=== PATIENT | female | born 1980 | race Caucasian/White ===

== ENCOUNTER 2017-08-14 08:22 | Emergency (ER) | payer OTHER ==
[2017-08-14 10:05] LABS: BASOPHIL % 0.3 % (0-2); PLATELET COUNT 380 x10^3mcL (130-400)
[2017-08-14 10:13] LABS: RED CELL DISTRIBUTION WIDTH 17.4 % (11.5-14.5)
[2017-08-14 10:32] LABS: CALCIUM 8.5 mg/dL (8.5-10.1); CARBON DIOXIDE 27.8 mmol/L (21-32); CHLORIDE SERUM 104 mmol/L (98-107); CREATININE SERUM 0.6 mg/dL (0.6-1.0); GFR1 > 60 mL/min; GLUCOSE SERUM 92 mg/dL (74-106); POTASSIUM SERUM 4.3 mmol/L (3.5-5.1); SODIUM SERUM 137 mmol/L (136-145)
[2017-08-14 10:36] LABS: ALBUMIN 3.6 g/dL (3.4-5.0); ALKALINE PHOSPHATASE 68 U/L (46-116); ALT/SGPT 23 U/L (14-59); AST/SGOT 20 U/L (15-37); BILIRUBIN TOTAL 0.2 mg/dL (0.20-1.00); CHOLESTEROL 185 mg/dL (<200); CHOLESTEROL/HDL RATIO 3.7; HDL CHOLESTEROL 50 mg/dL (40-60); LIPASE 161 IU/L (73-393); TOTAL PROTEIN, SERUM 7.2 g/dL (6.4-8.2); TRIGLYCERIDES 104 mg/dL (<150)
[2017-08-14 10:44] LABS: FREE T4 0.77 ng/dL (0.76-1.46); FREE THYROXINE INDEX 2.2 ug/dL (1.4-4.5); T4(THYROXINE) 6.7 ug/dL (4.7-13.3)
[2017-08-14 10:58] LABS: T3 TOTAL 0.96 ng/mL
[2017-08-14 11:51] LABS: microscopic required? YES; urine erythrocyte 2+ (NEGATIVE)
[2017-08-14 12:09] VITALS: BP 110/56
== END 2017-08-14 12:09 | disposition home or self-care (01) ==
LOC: ED 08:22
PROVIDERS: Specialist
DX: M54.6 Pain in thoracic spine (principal); F03.90 Unspecified dementia, unspecified severity, without behavioral disturbance, psychotic disturbance, mood disturbance, and anxiety; R10.9 Unspecified abdominal pain
CPT/HCPCS: 72072; 83880; 84439; J1885; J2405; J3010; J7030

== ENCOUNTER 2017-10-28 02:40 | Emergency (ER) | payer OTHER ==
[~2017-10-28] VITALS: Ht 157.5 cm; Wt 74.5 kg
[2017-10-28 02:48] VITALS: BP 122/76; Ht 157.5 cm; Wt 74.5 kg
== END 2017-10-28 02:57 | disposition left against medical advice (07) ==
LOC: ED 02:40
DX: Z53.21 Procedure and treatment not carried out due to patient leaving prior to being seen by health care provider (principal)

== ENCOUNTER 2017-10-28 21:02 | Emergency (ER) | payer OTHER ==
[~2017-10-28] VITALS: Ht 157.5 cm; Wt 72.6 kg
[2017-10-28 21:15] VITALS: Ht 157.5 cm; Wt 72.6 kg
[2017-10-29 00:48] VITALS: BP 113/74
== END 2017-10-29 00:48 | disposition left against medical advice (07) ==
LOC: ED 21:02
DX: Z53.21 Procedure and treatment not carried out due to patient leaving prior to being seen by health care provider (principal)

== ENCOUNTER 2017-10-29 11:35 | Emergency (ER) | payer OTHER ==
[~2017-10-29] VITALS: Ht 157.5 cm; Wt 71.7 kg
[2017-10-29 11:51] VITALS: Ht 157.5 cm; Wt 71.7 kg
[2017-10-29 15:30] LABS: UA SPECIFIC GRAVITY 1.015 (1.005-1.035); microscopic required? YES; urine erythrocyte 3+ (NEGATIVE)
[2017-10-29 15:48] LABS: BASOPHIL % 0.1 % (0-2); PLATELET COUNT 346 x10^3mcL (130-400)
[2017-10-29 16:04] LABS: CALCIUM 8.5 mg/dL (8.5-10.1); CHLORIDE SERUM 102 mmol/L (98-107); CREATININE SERUM 0.5 mg/dL (0.6-1.0); GFR1 > 60 mL/min; GLUCOSE SERUM 100 mg/dL (74-106); SODIUM SERUM 136 mmol/L (136-145)
[2017-10-29 16:05] LABS: RED CELL DISTRIBUTION WIDTH 17.7 % (11.5-14.5)
[2017-10-29 16:12] LABS: T3 TOTAL 0.8 ng/mL
[2017-10-29 16:16] LABS: ALBUMIN 3.1 g/dL (3.4-5.0); ALKALINE PHOSPHATASE 67 U/L (46-116); ALT/SGPT 18 U/L (14-59); AST/SGOT 15 U/L (15-37); BILIRUBIN TOTAL 0.3 mg/dL (0.20-1.00); C REACTIVE PROTEIN 11.4 mg/dL (<=0.9); TOTAL PROTEIN, SERUM 6.9 g/dL (6.4-8.2)
[2017-10-29 16:17] LABS: CK-MB 0.5 ng/mL (0-3.6)
[2017-10-29 16:24] LABS: FREE THYROXINE INDEX 1.8 ug/dL (1.4-4.5); T4(THYROXINE) 5.4 ug/dL (4.7-13.3)
[2017-10-29 16:38] VITALS: BP 100/66
[2017-10-29 17:44] LABS: ERYTHROCYTE SED RATE 32 mm/hr (0-20)
== END 2017-10-29 16:38 | disposition home or self-care (01) ==
LOC: ED 11:35
PROVIDERS: Specialist
DX: N10 Acute pyelonephritis (principal)
CPT/HCPCS: 83880; 84439; J0696; J1170; J1885; J2405; J7030; Q0092

== ENCOUNTER 2018-06-06 18:33 | Emergency (ER) | payer SELFPAY ==
[~2018-06-06] VITALS: Ht 157.5 cm; Wt 69.9 kg
[2018-06-06 18:43] VITALS: Ht 157.5 cm; Wt 69.9 kg
[2018-06-06 20:21] VITALS: BP 116/69
== END 2018-06-06 20:22 | disposition left against medical advice (07) ==
LOC: ED 18:33
DX: Z53.21 Procedure and treatment not carried out due to patient leaving prior to being seen by health care provider (principal)

== ENCOUNTER 2018-06-08 21:22 | Emergency (ER) | payer SELFPAY ==
[~2018-06-08] VITALS: Ht 157.5 cm; Wt 68.7 kg
[2018-06-08 22:07] VITALS: Ht 157.5 cm; Wt 68.7 kg
[2018-06-09 01:05] VITALS: BP 138/85
== END 2018-06-09 01:05 | disposition left against medical advice (07) ==
LOC: ED 21:22
DX: Z53.21 Procedure and treatment not carried out due to patient leaving prior to being seen by health care provider (principal)

== ENCOUNTER 2018-08-17 19:37 | Inpatient (IN) | payer SELFPAY ==
[~2018-08-17] VITALS: Ht 157.5 cm; Wt 70.1 kg
[2018-08-17 19:42] VITALS: Ht 157.5 cm; Wt 70.1 kg
[2018-08-17 20:07] LABS: PLATELET COUNT 379 x10^3mcL (130-400)
[2018-08-17 20:09] LABS: RED CELL DISTRIBUTION WIDTH 15.5 % (11.5-14.5)
[2018-08-17 20:13] LABS: CALCIUM 8.6 mg/dL (8.5-10.1); CARBON DIOXIDE 23.6 mmol/L (21-32); CHLORIDE SERUM 99 mmol/L (98-107); CREATININE SERUM 0.7 mg/dL (0.6-1.0); GFR1 > 60 mL/min; GLUCOSE SERUM 110 mg/dL (74-106); SODIUM SERUM 133 mmol/L (136-145)
[2018-08-17 20:18] LABS: ALKALINE PHOSPHATASE 84 U/L (46-116); ALT/SGPT 14 U/L (14-59); AST/SGOT 10 U/L (15-37); BILIRUBIN TOTAL 0.6 mg/dL (0.20-1.00); LIPASE 79 IU/L (73-393); TOTAL PROTEIN, SERUM 7.2 g/dL (6.4-8.2)
[2018-08-17 20:19] LABS: ALBUMIN 3.3 g/dL (3.4-5.0)
[2018-08-17 20:46] LABS: BAND NEUTROPHIL 17 % (0-10); BASOPHIL 0 % (0-2); MONOCYTE 3 % (0-7); MYELOCYTE 1 % (0-2); SEGMENTED NEUTROPHILS 76 % (37-75)
[2018-08-17 20:47] LABS: ovalocyte/elliptocyte 1+; rbc morphology (normal/abnorm) ABNORMAL (NORMAL)
[2018-08-17 20:48] LABS: PLATELET MORPHOLOGY PLATELETS NORMAL
[2018-08-17 23:42] VITALS: BP 96/61
[2018-08-18 01:11] LABS: MAGNESIUM 1.8 mg/dL (1.8-2.4); PHOSPHOROUS 3.2 mg/dL (2.5-4.9)
[2018-08-18 01:14] LABS: T3 TOTAL 0.79 ng/mL
[2018-08-18 01:15] LABS: CHOLESTEROL/HDL RATIO 2.2
[2018-08-18 01:20] LABS: FREE T4 1.03 ng/dL (0.76-1.46); FREE THYROXINE INDEX 2.4 ug/dL (1.4-4.5)
[2018-08-18 05:31] VITALS: BP 100/56
[2018-08-18 05:58] LABS: BASOPHIL % 0.1 % (0-2); PLATELET COUNT 352 x10^3mcL (130-400)
[2018-08-18 06:11] LABS: CALCIUM 7.7 mg/dL (8.5-10.1); CARBON DIOXIDE 27.4 mmol/L (21-32); CHLORIDE SERUM 105 mmol/L (98-107); CREATININE SERUM 0.7 mg/dL (0.6-1.0); GFR1 > 60 mL/min; GLUCOSE SERUM 96 mg/dL (74-106); SODIUM SERUM 136 mmol/L (136-145)
[2018-08-18 06:33] LABS: RED CELL DISTRIBUTION WIDTH 15.5 % (11.5-14.5)
[2018-08-18 08:03] VITALS: BP 97/53
[2018-08-18 08:40] LABS: AMPHETAMINE QUAL UR POSITIVE (See below)
[2018-08-18 09:06] LABS: microscopic required? YES; urine erythrocyte NEGATIVE (NEGATIVE)
[2018-08-18 17:04] VITALS: BP 106/69
[2018-08-18 20:37] VITALS: BP 115/61
[2018-08-19 05:33] VITALS: BP 111/63
[2018-08-19 06:21] LABS: CARBON DIOXIDE 26.1 mmol/L (21-32); CHLORIDE SERUM 109 mmol/L (98-107); CREATININE SERUM 0.5 mg/dL (0.6-1.0); GFR1 > 60 mL/min; GLUCOSE SERUM 100 mg/dL (74-106); MAGNESIUM 1.9 mg/dL (1.8-2.4); PHOSPHOROUS 2.4 mg/dL (2.5-4.9); PLATELET COUNT 400 x10^3mcL (130-400); POTASSIUM SERUM 4.1 mmol/L (3.5-5.1); SODIUM SERUM 140 mmol/L (136-145)
[2018-08-19 06:32] LABS: RED CELL DISTRIBUTION WIDTH 15.7 % (11.5-14.5)
[2018-08-19 07:27] LABS: BAND NEUTROPHIL 3 % (0-10); BASOPHIL 0 % (0-2); MONOCYTE 5 % (0-7); SEGMENTED NEUTROPHILS 76 % (37-75); rbc morphology (normal/abnorm) ABNORMAL (NORMAL)
[2018-08-19 07:28] LABS: PLATELET MORPHOLOGY PLATELETS NORMAL; ovalocyte/elliptocyte 1+
[2018-08-19 08:36] VITALS: BP 124/81
[2018-08-19] MEDS ORDERED: DOXYCYCLINE HY100 MG PO (08:37)
[2018-08-19 10:53] VITALS: BP 124/81
== END 2018-08-19 15:00 | disposition home or self-care (01) | DRG 872 ==
LOC: ED 19:37 → MU 22:49
PROVIDERS: Emergency Medicine; General Practice
DX: A41.9 Sepsis, unspecified organism (principal); E87.1 Hypo-osmolality and hyponatremia; F12.90 Cannabis use, unspecified, uncomplicated; D50.9 Iron deficiency anemia, unspecified; R73.03 Prediabetes; F15.90 Other stimulant use, unspecified, uncomplicated; N73.9 Female pelvic inflammatory disease, unspecified; Z98.51 Tubal ligation status; Z72.89 Other problems related to lifestyle; Z71.51 Drug abuse counseling and surveillance of drug abuser
CPT/HCPCS: 83880; 84439; 87491; 87591; J0696; J1885; J2270; J2543; J3490; J7030; Q0092

== ENCOUNTER 2019-02-15 01:46 | Emergency (ER) | payer SELFPAY ==
[~2019-02-15] VITALS: Ht 157.5 cm; Wt 68.0 kg
[~2019-02-15 01:46] MED LIST: DOXYCYCLINE HY100 MG PO
[2019-02-15 02:04] VITALS: Ht 157.5 cm; Wt 68.0 kg
[2019-02-15 05:29] VITALS: BP 127/85
== END 2019-02-15 05:29 | disposition home or self-care (01) ==
LOC: ED 01:46
DX: H00.016 Hordeolum externum left eye, unspecified eyelid (principal)
CPT/HCPCS: J1885

== ENCOUNTER 2019-04-30 15:38 | Emergency (ER) | payer MEDICAID ==
[~2019-04-30] VITALS: Ht 157.5 cm; Wt 68.0 kg
[2019-04-30 15:42] VITALS: Ht 157.5 cm; Wt 68.0 kg
[2019-04-30 18:12] VITALS: BP 144/89
== END 2019-04-30 18:12 | disposition home or self-care (01) ==
LOC: ED 15:38
DX: L02.411 Cutaneous abscess of right axilla (principal); S92.001D Unspecified fracture of right calcaneus, subsequent encounter for fracture with routine healing; Z98.890 Other specified postprocedural states; X58.XXXD Exposure to other specified factors, subsequent encounter
CPT/HCPCS: J2001; Q0092

== ENCOUNTER 2019-06-08 23:06 | Emergency (ER) | payer MEDICAID ==
[~2019-06-08] VITALS: Ht 160 cm; Wt 68.0 kg
[2019-06-08 23:22] VITALS: BP 118/74; Ht 160 cm; Wt 68.0 kg
== END 2019-06-09 00:23 | disposition left against medical advice (07) ==
LOC: ED 23:06
DX: Z53.21 Procedure and treatment not carried out due to patient leaving prior to being seen by health care provider (principal)

== ENCOUNTER 2019-06-09 15:50 | Emergency (ER) | payer MEDICAID ==
[~2019-06-09] VITALS: Ht 157.5 cm; Wt 69.4 kg
[2019-06-09 15:59] VITALS: BP 136/74
[2019-06-09 18:46] LABS: UA SPECIFIC GRAVITY 1.015 (1.005-1.035); microscopic required? YES; urine erythrocyte TRACE (NEGATIVE)
[2019-06-09 19:02] LABS: AMPHETAMINE QUAL UR NONE DETECTED (See below)
== END 2019-06-09 20:15 | disposition home or self-care (01) ==
LOC: ED 15:50
PROVIDERS: Emergency Medicine
DX: L02.411 Cutaneous abscess of right axilla (principal); M25.571 Pain in right ankle and joints of right foot; F12.90 Cannabis use, unspecified, uncomplicated
CPT/HCPCS: 36415; G0480

== ENCOUNTER 2020-09-14 17:24 | Inpatient (IN) | payer OTHER ==
[~2020-09-14] VITALS: Ht 157.5 cm; Wt 64.4 kg
[2020-09-14 17:39] VITALS: Ht 157.5 cm; Wt 64.4 kg
[2020-09-14 19:07] LABS: BASOPHIL % 0.6 % (0-2)
[2020-09-14 19:08] LABS: PLATELET COUNT 437 x10^3mcL (130-400)
[2020-09-15 01:00] LABS: TOTAL IRON BINDING CAPACITY 417 ug/dL (250-450)
[2020-09-15 01:09] LABS: IRON 13 ug/dL (50-170)
[2020-09-15 04:28] VITALS: BP 129/96
[2020-09-15 06:45] LABS: ALBUMIN 3.4 g/dL (3.4-5.0); ALKALINE PHOSPHATASE 68 U/L (46-116); ALT/SGPT 30 U/L (14-59); AST/SGOT 23 U/L (15-37); BILIRUBIN TOTAL 0.81 mg/dL (0.20-1.00); CARBON DIOXIDE 26.9 mmol/L (21-32); CHLORIDE SERUM 104 mmol/L (98-107); CREATININE SERUM 0.6 mg/dL (0.6-1.0); GFR1 > 60 mL/min; GLUCOSE SERUM 97 mg/dL (74-106); MAGNESIUM 2.3 mg/dL (1.8-2.4); POTASSIUM SERUM 3.9 mmol/L (3.5-5.1); SODIUM SERUM 141 mmol/L (136-145); TOTAL PROTEIN, SERUM 6.8 g/dL (6.4-8.2)
[2020-09-15 06:46] LABS: BASOPHIL % 0.6 % (0-2)
[2020-09-15 08:18] VITALS: BP 112/62
[2020-09-15 11:24] LABS: PLATELET COUNT 436 x10^3mcL (130-400)
[2020-09-15 11:51] LABS: ovalocyte/elliptocyte 1+; rbc morphology (normal/abnorm) ABNORMAL (NORMAL)
[2020-09-15 12:29] VITALS: BP 110/66
[2020-09-15 15:46] VITALS: BP 124/75
[2020-09-15 16:13] LABS: AMPHETAMINE QUAL UR POSITIVE (See below)
[2020-09-15 21:53] VITALS: BP 115/72
[2020-09-16 04:58] VITALS: BP 106/65
[2020-09-16 06:35] LABS: ALKALINE PHOSPHATASE 67 U/L (46-116); ALT/SGPT 21 U/L (14-59); AST/SGOT 18 U/L (15-37); BILIRUBIN TOTAL 0.3 mg/dL (0.20-1.00); CALCIUM 7.7 mg/dL (8.5-10.1); CARBON DIOXIDE 24.9 mmol/L (21-32); CHLORIDE SERUM 108 mmol/L (98-107); CREATININE SERUM 0.6 mg/dL (0.6-1.0); GFR1 > 60 mL/min; GLUCOSE SERUM 85 mg/dL (74-106); MAGNESIUM 1.9 mg/dL (1.8-2.4); POTASSIUM SERUM 3.6 mmol/L (3.5-5.1); SODIUM SERUM 139 mmol/L (136-145)
[2020-09-16 06:43] LABS: ALBUMIN 3.1 g/dL (3.4-5.0); TOTAL PROTEIN, SERUM 5.9 g/dL (6.4-8.2)
[2020-09-16 07:39] LABS: BASOPHIL % 0.5 % (0-2)
[2020-09-16 07:43] VITALS: BP 111/66
[2020-09-16 08:34] LABS: RED CELL DISTRIBUTION WIDTH 20.7 % (11.5-14.5)
[2020-09-16 09:53] LABS: PLATELET COUNT 397 x10^3mcL (130-400); rbc morphology (normal/abnorm) ABNORMAL (NORMAL); tear drop cell (dacryocyte) 1+
[2020-09-16 12:03] VITALS: BP 119/76
[2020-09-16] MEDS ORDERED: FER300 PO (14:49)
[2020-09-16 15:14] VITALS: BP 120/78
== END 2020-09-16 16:20 | disposition home or self-care (01) | DRG 253 ==
LOC: ED 17:24 → MU 23:48 → DU 23:48
PROVIDERS: Emergency Medicine; Internal Medicine Gastroenterology; ADMIT Hospitalist; ATTEND Hospitalist
PROC: 30233N1 Transfusion of Nonautologous Red Blood Cells into Peripheral Vein, Percutaneous Approach (ICD-10-PCS; principal; 2020-09-14)
PROC: 0DJD8ZZ Inspection of Lower Intestinal Tract, Via Natural or Artificial Opening Endoscopic (ICD-10-PCS; 2020-09-16 08:00)
PROC: 0DJD8ZZ Inspection of Lower Intestinal Tract, Via Natural or Artificial Opening Endoscopic (ICD-10-PCS; 2020-09-16 08:00)
DX: K62.5 Hemorrhage of anus and rectum (principal); D50.9 Iron deficiency anemia, unspecified; Z20.828 Contact with and (suspected) exposure to other viral communicable diseases; Z80.0 Family history of malignant neoplasm of digestive organs
CPT/HCPCS: C9113; G0378; J1200; J1610; J2060; J2250; J2270; J2310; J2916; J3010; J3490; J7030; J7040; P9016